=== PATIENT | male | born 1970 | race Hispanic/Latino ===

== ENCOUNTER 2018-01-23 09:05 | Emergency (ER) | payer BC ==
[~2018-01-23 09:05] MED LIST: Donnatal Elixir 16.2 MG/5 ML UDCUP ONE; Lidocaine Viscous Sol 2% 15 ml UD Cup ONE; Sodium Chloride 0.9% 1,000 ML BAG ONE
[2018-01-23] MEDS ORDERED: Donnatal Elixir 16.2 MG/5 ML UDCUP ONE (09:40)
[2018-01-23] MEDS ORDERED: Mag-Al Plus 1200 MG/1200 MG/120 MG/30 ML UDCUP ONE (09:40)
[2018-01-23] MEDS ORDERED: Lidocaine 2% Jelly 5 ML TUBE ONE (09:40)
[2018-01-23 10:09] LABS: #Basophils 0.1 thou/uL (0.0-0.2); #Eosinphils 0.1 thou/uL (0.0-0.7); #Lymphocytes 1.4 thou/uL (1.20-3.40); #Monocytes 0.4 thou/uL (0.11-0.59); #Neutrophils 2.3 thou/uL (1.40-6.50); %Basophils 1.6 % (0.0-1.0); %Eosinophils 3.1 % (0.0-10.0); %Lymphocytes 32.6 % (21.0-51.0); %Monocytes 9.6 % (0.0-10.0); %Neutrophils 53.1 % (42.0-75.0); Hemoglobin 14.5 g/dL (14.0-18.0); Mean Corpuscular HGB CONC 33.1 g/dL (32.0-36.0); Mean Corpuscular Hemoglobin 30.5 pg (27.0-31.0); Platelet Count 220 thou/uL (130-400); RBC Distribution Width 11.4 % (11.5-14.5); Red Blood Cell (RBC) Count 4.76 mill/uL (4.70-6.10); White Blood Cell (WBC) Count 4.2 thou/uL (4.8-10.8)
[2018-01-23 10:27] LABS: CKMB 2.1 ng/mL (0-6.6); Troponin I Less than 0.010 ng/mL (< 0.028)
[2018-01-23 10:28] LABS: Albumin 4.3 g/dL (3.5-5.0); BUN (Urea Nitrogen) 11 mg/dL (8.9-20.6); CK (CPK) 164 U/L (30-200); Calc. Creatinine Clearance 0 mL/min (70-130); Calcium 9.3 mg/dL (7.8-10.44); Chloride 107 mmol/L (98-107); Estimated GFR-MDRD Greater than 90; Globulin 3.5 g/dL (2.4-3.5); Glucose 109 mg/dL (70-105); Lipase 15 U/L (8-78); Potassium 5.5 mmol/L (3.5-5.1); Protein, Total 7.8 g/dL (6.0-8.3); Sodium 139 mmol/L (136-145)
[2018-01-23 10:32] LABS: Bilirubin Negative (Negative); Blood, Urine Trace (Negative); Clarity Clear (Clear); Glucose, Urine (Dipstick) Negative (Negative); Leukocyte Negative (Negative); Nitrite Negative (Negative); Protein, Urine (Dipstick) Negative (Neg-Trace); Urobilinogen 0.2 mg/dL (0.2-1.0); pH, Urine 5.5 (5.0-9.0)
[2018-01-23 10:33] LABS: Bacteria/HPF Rare-Few HPF (None Seen); RBC/HPF 0-3 HPF (0-3); Squamous Epithelial 0-3 HPF (0-3); WBC/HPF 0-3 HPF (0-3)
--- NOTE | 2018-01-23 10:47 | ULT ---
RIGHT UPPER QUADRANT ULTRASOUND: Date: 01/23/18 HISTORY: Right upper quadrant abdominal pain less than 24 hours. FINDINGS: There is a single, nonmobile, echogenic focus seen in the dependent portion of the gallbladder lumen, which does not demonstrate posterior shadowing. This measures approximately 4.0 mm and may represent small gallbladder polyp or adherent focus of sludge. No gallbladder calculi are seen. There is no ga llbladder wall thickening or pericholecystic fluid seen. The common duct measures 0.3 cm in diameter, which is within normal limits. Pancreas is obscured by bowel gas. The visualized abdominal aorta is normal in caliber. Portions of the right hepatic lobe are partially obscured due to shadowing from adjacent ribs, but li belgica is grossly normal in appearance and no focal hepatic lesion is appreciated on this exam. The IVC is mostly obscured. The right kidney has a normal sonographic appearance and measures 11.0 cm in length. IMPRESSION: 1. Small gallbladder polyp versus adherent sludge within the gallbladder lumen. No gallbladder calcu candy is seen, and the common duct is normal in caliber. 2. Nonvisualization of the pancreas and IVC, and there is also obscuration of a small portion of the right hepatic lobe. POS: VICKY
[2018-01-23 11:12] LABS: Alkaline Phosphatase 98 U/L (40-150); Anion Gap 16 mmol/L (10-20); Bilirubin, Total 0.4 mg/dL (0.2-1.2); Carbon Dioxide 22 mmol/L (22-29)
[2018-01-23 11:25] LABS: ALT (SGPT) 37 U/L (8-55); AST (SGOT) 24 U/L (5-34)
== END 2018-01-23 11:25 | disposition home or self-care (01) ==
LOC: MADERS 09:05
DX: K82.9 Disease of gallbladder, unspecified (principal); I10 Essential (primary) hypertension; Z79.899 Other long term (current) drug therapy; Z79.82 Long term (current) use of aspirin
CPT/HCPCS: 76705; 80053; 81003; 81015; 82150; 82553; 83690; 84484; 85025; 93005; J7050

== ENCOUNTER 2018-05-11 10:16 | Emergency (ER) | payer BC ==
[2018-05-11 10:38] LABS: #Basophils 0.1 thou/uL (0.0-0.2); #Eosinphils 0.2 thou/uL (0.0-0.7); #Lymphocytes 2.1 thou/uL (1.20-3.40); #Monocytes 0.5 thou/uL (0.11-0.59); #Neutrophils 2.6 thou/uL (1.40-6.50); %Basophils 2.6 % (0.0-1.0); %Eosinophils 4.4 % (0.0-10.0); %Monocytes 8.9 % (0.0-10.0); %Neutrophils 46.2 % (42.0-75.0); Hemoglobin 14.9 g/dL (14.0-18.0); Mean Corpuscular HGB CONC 35.6 g/dL (32.0-36.0); Mean Corpuscular Hemoglobin 32.4 pg (27.0-31.0); Mean Corpuscular Volume 91.2 fL (78.0-98.0); Mean Platelet Volume 7.9 fL (7.4-10.4); Platelet Count 268 thou/uL (130-400); RBC Distribution Width 11.5 % (11.5-14.5); White Blood Cell (WBC) Count 5.6 thou/uL (4.8-10.8)
--- NOTE | 2018-05-11 10:50 | RAD ---
RADIOGRAPH CHEST 1 VIEW: HISTORY: 47-year-old male with chest pain. FINDINGS: There are no air space densities, pulmonary edema, pneumothorax, or cardiomegaly. The lateral costop hrenic angles are sharp. IMPRESSION: No acute cardiopulmonary findings. cortney [] POS: VICKY
[2018-05-11 10:54] LABS: ALT (SGPT) 27 U/L (8-55); AST (SGOT) 25 U/L (5-34); Albumin 4.4 g/dL (3.5-5.0); Alkaline Phosphatase 94 U/L (40-150); Anion Gap 15 mmol/L (10-20); BUN (Urea Nitrogen) 9 mg/dL (8.9-20.6); Bilirubin, Total 0.5 mg/dL (0.2-1.2); Calc. Creatinine Clearance 0 mL/min (70-130); Calcium 9.5 mg/dL (7.8-10.44); Chloride 108 mmol/L (98-107); Estimated GFR-MDRD Greater than 90; Globulin 3.6 g/dL (2.4-3.5); Glucose 98 mg/dL (70-105); Potassium 4.1 mmol/L (3.5-5.1); Sodium 140 mmol/L (136-145)
[2018-05-11 10:58] LABS: CKMB 2.3 ng/mL (0-6.6)
[2018-05-11 11:18] LABS: Carbon Dioxide 21 mmol/L (22-29)
[2018-05-11 11:42] LABS: Bilirubin Negative (Negative); Blood, Urine Trace (Negative); Clarity Clear (Clear); Glucose, Urine (Dipstick) Negative (Negative); Leukocyte Negative (Negative); Nitrite Negative (Negative); Protein, Urine (Dipstick) Negative (Neg-Trace); Urobilinogen 0.2 mg/dL (0.2-1.0); pH, Urine 6.5 (5.0-9.0)
[2018-05-11 12:06] LABS: Amphetamine Not Detected (NotDetected); Barbiturates Screen Not Detected (NotDetected); Benzodiazepine Screen Not Detected (NotDetected); Cocaine Metabolite Screen Not Detected (NotDetected); Medtox Control Line Valid? VALID (VALID); Methadone Not Detected (NotDetected); Methamphetamine Not Detected (NotDetected); Opiate Screen Not Detected (NotDetected); Oxycodone Screen Not Detected (NotDetected); Phencyclidine (PCP) Not Detected (NotDetected); THC/Cannabinoid Screen Not Detected (NotDetected); Tricyclic Screen Not Detected (NotDetected)
[2018-05-11 12:10] LABS: Bacteria/HPF Rare-Few HPF (None Seen); RBC/HPF 0-3 HPF (0-3); Squamous Epithelial 0-3 HPF (0-3); WBC/HPF None Seen HPF (0-3)
== END 2018-05-11 13:30 | disposition home or self-care (01) ==
LOC: MADERS 10:16
DX: R42 Dizziness and giddiness (principal); I10 Essential (primary) hypertension; E78.5 Hyperlipidemia, unspecified
CPT/HCPCS: 36415; 71045; 80053; 80306; 81003; 81015; 82553; 83880; 84443; 84484; 85025; 93005; 94760

== ENCOUNTER 2018-05-14 13:14 | Emergency (ER) | payer BC ==
[~2018-05-14 13:14] MED LIST changes: -Donnatal Elixir 16.2 MG/5 ML UDCUP ONE; -Lidocaine Viscous Sol 2% 15 ml UD Cup ONE
[2018-05-14] MEDS ORDERED: Morphine 4 MG/ML VIAL ONE (13:29)
[2018-05-14 13:42] LABS: #Basophils 0.1 thou/uL (0.0-0.2); #Eosinphils 0.2 thou/uL (0.0-0.7); #Lymphocytes 2.2 thou/uL (1.20-3.40); #Monocytes 0.4 thou/uL (0.11-0.59); #Neutrophils 3.4 thou/uL (1.40-6.50); %Basophils 2.4 % (0.0-1.0); %Eosinophils 2.5 % (0.0-10.0); %Lymphocytes 35.4 % (21.0-51.0); %Monocytes 6.8 % (0.0-10.0); Hemoglobin 14.4 g/dL (14.0-18.0); Mean Corpuscular HGB CONC 33.9 g/dL (32.0-36.0); Mean Corpuscular Hemoglobin 30.9 pg (27.0-31.0); Mean Corpuscular Volume 91.1 fL (78.0-98.0); Mean Platelet Volume 6.5 fL (7.4-10.4); Platelet Count 246 thou/uL (130-400); RBC Distribution Width 11.8 % (11.5-14.5); Red Blood Cell (RBC) Count 4.67 mill/uL (4.70-6.10); White Blood Cell (WBC) Count 6.3 thou/uL (4.8-10.8)
[2018-05-14 13:57] LABS: ALT (SGPT) 26 U/L (8-55); AST (SGOT) 29 U/L (5-34); Albumin 4.4 g/dL (3.5-5.0); Alkaline Phosphatase 83 U/L (40-150); Anion Gap 18 mmol/L (10-20); BUN (Urea Nitrogen) 8 mg/dL (8.9-20.6); Bilirubin, Total 0.6 mg/dL (0.2-1.2); Calc. Creatinine Clearance 0 mL/min (70-130); Calcium 9.2 mg/dL (7.8-10.44); Carbon Dioxide 18 mmol/L (22-29); Chloride 107 mmol/L (98-107); Estimated GFR-MDRD Greater than 90; Globulin 3.6 g/dL (2.4-3.5); Glucose 88 mg/dL (70-105); Potassium 3.9 mmol/L (3.5-5.1); Sodium 139 mmol/L (136-145)
--- NOTE | 2018-05-14 14:13 | CT ---
CT ABDOMEN AND PELVIS WITHOUT CONTRAST: Date: 05/14/18 HISTORY: Bilateral abdominal pain, bilateral flank pain, mostly on left. FINDINGS: Absence of IV contrast reduces the sensitivity of exam for evaluation of solid organs. There is contr ast in some of the loops of bowel. The lung bases are unremarkable. No free air or free fluid is seen in the abdomen or pelvis. No calci fied gallstones are seen. The appendix is normal. There is colonic diverticulosis without evidence of diverticulitis. No calculi seen in the kidneys, ureters, or the urinary bladder. No hydroureteronephrosis is identifi ed. There are vascular calcifications without evidence of aneurysmal dilatation of the abdominal aorta. D egenerative changes are present in the spine. IMPRESSION: 1. No CT evidence of urinary tract calculi or obstruction, or appendicitis. 2. Colonic diverticulosis without evidence of diverticulitis. POS: OFF
[2018-05-14] MEDS ORDERED: Ketorolac Tromethamine 30 MG/ML VIAL ONE (14:36)
[2018-05-14] MEDS ORDERED: HYDROcodone/Acetaminophen 5/325 mg Tablet ONE (14:36)
== END 2018-05-14 14:55 | disposition home or self-care (01) ==
LOC: MADERS 13:14
DX: K57.90 Diverticulosis of intestine, part unspecified, without perforation or abscess without bleeding (principal); I10 Essential (primary) hypertension; E78.00 Pure hypercholesterolemia, unspecified; E05.90 Thyrotoxicosis, unspecified without thyrotoxic crisis or storm
CPT/HCPCS: 74176; 80053; 85025; 96361; 96374; 96375; J1885; J2270; J7050